=== PATIENT | male | born 1995 | race African-American/Black ===

== ENCOUNTER 2025-06-28 20:57 | Emergency (ER) | payer BC, SELFPAY ==
[2025-06-28 21:06] VITALS: BP 123/69; PULSE 101; RESP 20; TEMP 37.2; O2SAT 95; BMI 25.7
--- OUTSIDE RECORDS SUMMARY | 2025-06-28 21:39 | XMS_ITS | Encounter Summary ---
Author Organization [facility] Address [address] [place] [address] Care Team Providers Care Casino Duty Manager Name Role Phone No Primary/Referring, Phy Primary Care Provider Unavailable Encounter Details Date Type Department Care Team (Late st Contact Info) Description 06/14/2019 Correspondence None No Primary/Referring, Phy [facility] Social History Tobacco Use Types Packs/Day Years Used Date Smoking Tobacco: Never Smokeless Tobacco: Never Alcohol Use Standard Drinks/Week Comments Not Currently 0 (1 standard drink = 0.6 oz pur e alcohol) Sex and Gender Information Value Date Recorded Sex Assigned at Not on file Legal Sex Male 4:35 PM CDT Gender Identity Not on file Sexual Orientation Not on file documented as of this encounter Plan of Treatment Not on file documented as of this encounter Visit Diagnoses Not on filedocumented in this encounter Care Teams Casino Duty Manager Relationship Specialty Start Date End Date No Primary/Referring, Phy PCP - General 10/25/19 documented as of this encounter
--- OUTSIDE RECORDS SUMMARY | 2025-06-28 21:39 | XMS_ITS | Encounter Summary ---
Author Organization [facility] Address [address] [place] [address] Care Team Providers Care Medicaid Analyst Name Role Phone No Primary/Referring, Phy Primary Care Provider Unavailable Encounter Details Date Type Department Care Team (Late st Contact Info) Description 06/14/2019 Consent for Procedure/Treatme nt Travel and Tropical Medicine [address] [facility] [place], [place] [id number] Manisha Montenegro PA-C [address] [place], [place] [phone] INFORMED CONSENT VACCINATION Social History Tobacco Use Types Packs/Day Years [...] on filedocumented in this encounter Care Teams Medicaid Analyst Relationship Specialty Start Date End Date No Primary/Referring, Michele PCP - General 10/25/19 documented as of this encounter
--- OUTSIDE RECORDS SUMMARY | 2025-06-28 21:39 | XMS_ITS | Clinical Summary ---
Author Organization [facility] Address [address], [place] [address] Care Team Providers Care Color Printer Operator Name Role Phone No Primary/Referring, Phy Primary Care Provider Unavailable Source Comments You are receiving this document as you are listed as the primary care provider,follow-up provider, or the patient has been referred to you for consultation.This is in compliance with the Medicare and[facility] E[facility] Incentive Program,which states Providers who transition their patient to another setting of careor provider of care or refers their patient to another provider of care shouldprovide summary care record for each transition of care or referral. Code Fever Allergies No known active allergies Medications olopatadine (PATADAY) 0.2 % eye drop solution Place 1 Drop into both eyes daily. 2.5 mL 1 03/23/2023 Active Immunizations Immunization Administration Dates Next Due Fluzone Qiv Multidose Vial 0.25 (6-35 Mos) 09/03 HepA Adult (19+ yrs) 06/14/2019,2014 HepB Adult (Engerix-B, 20+ yrs, 3 dose series) 0 06/14/2019 HepB Ped/Adol (0-18 yrs) 02/02/2016,09/03/2015 IPV (Polio) 09/03/2015 MMR 06/14/2019,02/02/2016 Meningococcal ACWY, Unspecified Formulation 08/24 Tdap 09/03/2015,2014 Typhoid (Typhim Vi, IM) 06/14/2019 Varicella 02/02/2016 YF (Yellow Fever) 06/14/2019 Social History Tobacco Use Types Packs/Day Years Used Date Smoking Tobacco: Never Smokeless Tobacco: Never Alcohol Use Standard Drinks/Week Comments Not Currently 0 (1 standard drink = 0.6 oz pur e alcohol) Sex and Gender Information Value Date Recorded Sex Assigned at Not on file Legal Sex Male 4:35 PM CDT Gender Identity Not on file Sexual Orientation Not on file Last Filed Vital Signs Vital Sign Reading Time Taken Comments Blood Pressure 133/76 03/23/2023 7:13 PM CDT Pulse 91 03/23/2023 7:13 PM CDT Temperature 36.9 C (98.4 F) 03/23/2023 7:13 PM CDT Respiratory Rate 20 03/23/2023 7:13 PM CDT Oxygen Saturation 98% 03/23/2023 7:13 PM CDT Inhaled Oxygen Concentration - - Weight 81.6 kg (180 lb) 10/25/2019 1:07 PM DOLL WIGS HACKLER Height 170.2 cm (5' 7) 06/14/2019 1:32 PM CDT Body Mass Index 28.19 06/14/2019 1:32 PM CDT Plan of Treatment Health Maintenance Due Date Last Done Comments Hep C Screening (Preventive Services) 1994 Tuberculosis Screening 1994 Hep B Screening ([facility]) 1995 HIV Screening (Preventive Services) 2010 Adult Preventive Visit 2012 HepB Vaccine (2) 07/12/2019 06/14/2019, 02/02/2016, 09/03/2015 HPV Vaccine (1 - 3-dose SCDM series) 2021 COVID-19 Vaccine (4 - 2023-2 5 season) 2024 11/07/2021, 05/11/2021, 04/13/2021 Influenza Vaccine (#1) 2025 2, 09/03/2015 DTaP/Tdap/Td Vaccine (3 - Tdap) 09/03/2025 09/03/2015, 2014 Zoster/Shingles Vaccine (1 o f 2) 2044 IPV (Polio) Vaccine Aged Out 09/03/2015 No longe r eligible based on patient's age to complete this topic MCV4 Vaccine Aged Out 09/03/2015 No longer eligi ble based on patient's age to complete this topic HepA Vaccine Completed 06/14/2019, 2014 Hib Vaccine Aged Out No longer eligi ble based on patient's age to complete this topic Meningococcal B Vaccine Aged Out No l onger eligible based on patient's age to complete this topic Pneumococcal Vaccine Aged Out No long er eligible based on patient's age to complete this topic Insurance [facility] [employer] Care Teams Color Printer Operator Relationship Specialty Start Date End Date No Primary/Referring, Phy PCP - General 10/25/19
--- OUTSIDE RECORDS SUMMARY | 2025-06-28 21:39 | XMS_ITS | Clinical Summary ---
Author Organization [employer] [facility] Address [facility] [place] [address] Care Team Providers Care Roller Bearing Inspector Name Role Phone Pcp, No Primary Care Provider Unavailabl e Allergies No known active allergies Medications albuterol HFA 90 mcg/actuation inhalerIndicatio ns:Wheezing,Low O2 saturation,Lower respiratory infection (e.g., bronchitis, pneumonia, pneumonitis, pulmonitis) Inhale 1-2 Puffs by mouth every 4 hours if needed for Shortness Of Breath or Wheezing. 1 Each 5 Active Active Problems No known active problems Immunizations Immunization Administration Dates Next Due Hepatitis A (Adult) 06/14/2019,2014 Hepatitis A, Unspecified 2014 Hepatitis B (Adult) 06/14/2019 Hepatitis B (Peds) 02/02/2016,09/03/2015 Hepatitis B, Unspecified 02/02/2016,09/03/2015 Inactivated Polio Vaccine 09/03/2015 Influenza, IIV4 (=>6mos) MDV 09/03/2015 Influenza,CCIIV4 PRESERV FREE 11/07/2021 MMR 06/14/2019,02/02/2016 Meningococcal Vaccine (Menomune) 09/03/2015 Meningococcal, Unspecified 09/03/2015 Tdap 09/03/2015,2014 Typhoid (injectable) 06/14/2019 Varicella Vaccine 02/02/2016 Yellow Fever 06/14/2019 Social History Tobacco Use Types Packs/Day Years Used Date Smoking Tobacco: Never Passive Smoke Exposure: Never Smokeless Tobacco: Never Tobacco Cessation:Counseling Given: Not Answered Alcohol Use Standard Drinks/Week Comments Not Currently 0 (1 standard drink = 0.6 oz pur e alcohol) PHQ-2 Answer Date Recorded PHQ-2 TOTAL SCORE 0 03/02/2024 Social Connections Answer Date Recorded Do you often feel lonely or isolated from those around you? 0 03/09/2025 Financial Resource Strain Answer Date R ecorded Difficulty of Paying Living Expenses 3 02/28/2025 Difficulty of Paying Living Expenses Not on file 02/28/2025 Food Insecurity Answer Date Recorded Do you worry your food will run out before you are able to buy more? 1 03/09/2025 Transportation Needs Answer Date Record ed Does lack of transportation keep you from medica l appointments? 1 03/09/2025 Does lack of transportation keep you from work, meetings or getting things that you need? 1 03/09/2025 Housing Stability Answer Date Recorded What is your housing situation today? 1 03/09/2025 Utilities Answer Date Recorded Do you have trouble paying f or utilities (for example, heat, electricity, water, phone)? 1 03/09/2025 Sex and Gender Information Value Date Recorded Sex Assigned at Not on file Legal Sex Male 5:52 PM ACCOUNT FINANCIAL MANAGER Gender Identity Not on file Sexual Orientation Not on file Obstetrics History Last Filed Vital Signs Vital Sign Reading Time Taken Comments Blood Pressure 130/67 03/09/2025 7:17 PM CDT Pulse 91 03/09/2025 7:17 PM CDT Temperature 36.6 C (97.8 F) 03/09/2025 7:17 PM CDT Respiratory Rate 18 03/09/2025 7:17 PM CDT Oxygen Saturation 94% 03/09/2025 8:54 PM CDT Inhaled Oxygen Concentration - - Weight 92.1 kg (203 lb) 03/09/2025 7:17 PM CDT Height 174 cm (5' 8.5) 03/02/2024 11:38 AM CDT Body Mass Index 30.42 03/02/2024 11:38 AM CDT Plan of Treatment Health Maintenance Due Date Last Done Comments BMI (ht and wt on same day) for age 18+ 03/02/2025 03/02/2024 Depression screening for age 12+ 03/02/2025 03/02/2024 COVID-19 vaccine series ( season) 2025 11/07/2021, 05/11/2021, 04/13/2021 Influenza Vaccine (#1) 2025 11/07/2021, 2014 Tetanus booster 09/03/2025 09/03/2015, 2014 RSV vaccine for adults or (1 - 1-dose 75+ series) 2069 Hepatitis B series for 19+ Completed 06/14, 02/02/2016, 02/02/2016, Additional history exists HIV for age 15-65 Completed 03/02/2024 Hepatitis C screening for age 18-79 Completed 03/02/2024 Pneumococcal series for age 6-49 Aged Out No longer eligible based on patient's age to complete this topic Procedures Procedure Name Priority Date/Time Associated Diagnosis Comments ANTI HIV 1/2 Routine 03/02/2024 12:21 PM CDT Screening for HIV (human immunodeficiency virus) ANTI HCV Routine 03/02/2024 12:21 PM CDT Need for hepatitis C screening test from Last 3 Months or Most Recently Relevant to Health Maintenance Results * ANTI HCV (03/02/2024 12:21 PM CDT) HEPATITIS C ANTIBODY Non-Reacti ve Non-React nestor 03/03/2024 12:34 AM CDT [employer] Target Software [facility] Comment:Please note, per www .CDC.gov: If a patient is known to be at high risk of HCV infection, or is symptomatic, and the physician's suspicion of HCV infection is high, HCV RNA testing is often employed and is of diagnostic value, even after an initial negative anti-HCV test result. Blood BLOOD SPECIMEN / Unknown Venipuncture / Unknown 03/02/2024 12:21 PM CDT 03/02/2024 12:21 PM CDT us Tia PEREZ SEND OUTS Final Result [facility] [address] [place] [address], [place] * ANTI HIV 1/2 (03/02/2024 12:21 PM CDT) HIV-1/HIV-2 SCREEN Non-Reacti ve Non-Reacti ve 03/03/2024 12:15 AM CDT [facility] Comment:HIV-1 p24 and HIV-1/ HIV-2 Ab Not Detected. Blood BLOOD SPECIMEN / Unknown Venipuncture / Unknown 03/02/2024 12:21 PM CDT 03/02/2024 12:21 PM CDT us Tia PEREZ SEND OUTS Final Result [facility] [address] [place] [address], from Last 3 Months or Most Recently Relevant to Health Maintenance Insurance [facility] Care Teams Roller Bearing Inspector Relationship Specialty Start Date End Date Pcp, No . PCP - General 02/16/24
--- OUTSIDE RECORDS SUMMARY | 2025-06-28 21:39 | XMS_ITS | Clinical Summary ---
Author Organization [facility] Address [address] [place] [address] Care Team Providers Care Assistant Dean Name Role Phone No Ref-Primary, Physician Primary Care Provider Allergies No known active allergies Medications diclofenac (VOLTAREN) 75 MG EC tabletIndicatio ns:Acute right-sided thoracic back pain Take 1 tablet (75 mg) by mouth 2 times daily as needed for moderate pain 15 tablet 4 Active Additional Information Patient not taking.Reported on 12/26/2024 cyclobenzaprine (FLEXERIL) 5 MG tabletIndicatio ns:Acute right-sided thoracic back pain Take 1 tablet (5 mg) by mouth 3 times daily as needed for muscle spasms 15 tablet 4 Active Additional Information Patient not taking.Reported on 12/26/2024 Active Problems Problem Noted Date Diagnosed Date CARDIOVASCULAR SCREENING; LDL GOAL LESS THAN 160 2014 Immunizations Immunization Administration Dates Next Due HEPA 2014 HepB 02/02/2016,09/03/2015 Hepatitis A (VAQTA)(ADULT 19+) 06/14/2019 Hepatitis B, Adult (Energix-B/Recombivax HB) Hepatitis B, Peds (Engerix-B/Recombivax HB) 01/22,09/03/2015 Influenza Vaccine, 6+MO IM ( QUADRIVALENT W/PRESERVATIVES) 09/03/2015 Influenza,INJ,MDCK,PF,Quad >6mo(Flucelvax) 11/07 MMR (MMRII) 06/14/2019,02/02/2016 Meningococcal (Menomune ) 09/03/2015 Poliovirus, inactivated (IPV) 09/03/2015 TDAP Vaccine (Adacel) 09/03/2015,2014 Typhoid IM 06/14/2019 Varicella (Varivax) 02/02/2016 Yellow Fever 06/14/2019 Family History Medical History Relation Comments Family History Negative Brother 1 Family History Negative Brother 2 Family History Negative Father Family History Negative Maternal Grandfather Family History Negative Maternal Grandmother Family History Negative Mother Family History Negative Paternal Grandfather Family History Negative Paternal Grandmother Relation Status Comments Brother 1 Brother 2 Father Maternal Grandfather Maternal Grandmother Mother Paternal Grandfather Paternal Grandmother Social History Tobacco Use Types Packs/Day Years Used Date Smoking Tobacco: Never Smokeless Tobacco: Never Alcohol Use Standard Drinks/Week Comments No 0 (1 standard drink = 0.6 oz pur e alcohol) PHQ-2 Answer Date Recorded PHQ-2 Score 0 12/26/2024 Adolescent Education Answer Date Record ed Getting School Help Needed Not on file 07/15 Food Insecurity Answer Date Recorded Within the past 12 months, d id you worry that your food would run out before you got money to buy more? No 12/26/2024 Within the past 12 months, d id the food you bought just not last and you didn t have money to get more? No 12/26/2024 Housing Stability Answer Date Recorded Do you have housing? (Laurain g is defined as stable permanent housing and does not include staying outside in a car, in a tent, in an abandoned building, in an overnight usp, or couch-surfing.) Yes 12/26/2024 Are you worried about losing your housing? No 12/26/2024 Financial Resource Strain Answer Date R ecorded Within the past 12 months, h ave you or your family members you live with been unable to get utilities (heat, electricity) when it was really needed? No 12/26/2024 Transportation Needs Answer Date Record ed Within the past 12 months, h as lack of transportation kept you from medical appointments, getting your medicines, non-medical meetings or appointments, work, or from getting things that you need? No 12/26/2024 Sex and Gender Information Value Date Recorded Sex Assigned at Male 12/26/2024 2:03 PM STRAIGHT KNIFE CUTTER MACHINE Legal Sex Male 9:17 AM STRAIGHT KNIFE CUTTER MACHINE Gender Identity Male 12/26/2024 2:02 PM STRAIGHT KNIFE CUTTER MACHINE Sexual Orientation Straight 12/26/2024 2: 02 PM STRAIGHT KNIFE CUTTER MACHINE Last Filed Vital Signs Vital Sign Reading Time Taken Comments Blood Pressure 120/78 03/21/2024 7:03 PM CDT Pulse 63 03/21/2024 7:03 PM CDT Temperature 36.6 C (97.9 F) 03/21/2024 7:03 PM CDT Respiratory Rate 16 07/17/2021 10:21 AM CDT Oxygen Saturation 97% 03/21/2024 7:03 PM CDT Inhaled Oxygen Concentration - - Weight 94.5 kg (208 lb 4.8 oz) 03/21/2024 7:03 P M CDT Height 172.1 cm (5' 7.75) 05/25/2019 4:25 PM CD T Body Mass Index 31.91 05/25/2019 4:25 PM CDT Plan of Treatment Health Maintenance Due Date Last Done Comments ADVANCE CARE PLANNING 1994 ANNUAL REVIEW OF HM ORDERS 1994 YEARLY PREVENTIVE VISIT 03/02/2025 03/02/2024, 12/16 COVID-19 VACCINE ( season) 2025 11/07/2021, 05/11/2021, 04/13/2021 INFLUENZA VACCINE (#1) 2025 11/07/2021, 2014 DTAP/TDAP/TD VACCINE (3 - Td or Tdap) 09/03/2025 09/03/2015, 2014 ZOSTER VACCINE (1 of 2) 2044 MENINGITIS VACCINE Aged Out 09/03/2015 No longer eligible based on patient's age to complete this topic HEPATITIS B VACCINE Completed 06/14/2019, 02/02/2016, 02/02/2016, Additional history exists HEPATITIS C SCREENING Completed 03/02/2024, 015 HIV SCREENING Completed 03/02/2024 PHQ-2 (once per calendar year) Completed 12/26/2024, 05/10/2019, 11/07/2015 HPV VACCINE (No Doses Required) Completed PNEUMOCOCCAL VACCINE: PEDIATRICS (0 to 5 YEARS) AND AT-RISK PATIENTS (6 to 49 YEARS) Aged Out No longer eligible based on patient's age to complete this topic Procedures Procedure Name Priority Date/Time Associated Diagnosis Comments HEPATITIS C ANTIBODY Routine 2014 11:54 AM STRAIGHT KNIFE CUTTER MACHINE Routine General Medical Examination At A Health Care Facility from Last 3 Months or Most Recently Relevant to Health Maintenance Results * Hepatitis C antibody (2014 11:54 AM STRAIGHT KNIFE CUTTER MACHINE) Hepatitis C Antibody Nonreactive Assay performance characteristics have not been established for newborns, infants, and children NR [facility] Blood specimen (specimen) 2014 11:54 AM STRAIGHT KNIFE CUTTER MACHINE 2014 11:55 AM STRAIGHT KNIFE CUTTER MACHINE us Arely Tsai APRN [facility] - BLOOD ORDERABLES Final Result [facility] [address] [place] [address] from Last 3 Months or Most Recently Relevant to Health Maintenance Care Teams Assistant Dean Relationship Specialty Start Date End Date No Ref-Primary, Physician PCP - General 03/21/24
[2025-06-28 21:54] LABS: Strep A DNA Probe* DETECTED (Not Detectd)
--- NOTE | 2025-06-28 22:05 | ED_ITS ---
HPI - General Adult General Date Seen: 06/28/25 Chief complaint: Ear/Nose/Throat Problem Stated complaint: sore throat and fever Time Seen by Provider: 06/28/25 20:58 Source: patient Mode of arrival: ambulatory Limitations: no limitations History of Present Illness HPI narrative: Patient is a 29-year-old male presenting to the emergency department for a sore throat. He states sore throat started today. Has also been feeling fatigued all day. Has not had any fevers or chills. Has not had a cough. Does admit to headache. Took ibuprofen at 17:00 with some relief. Does state his son is on medication currently for strep throat. He was diagnosed 1 week ago. No other people are sick that he is aware of. Has not noticed any swelling underneath his tongue. No difficulty breathing. Denies chest pain, weakness, numbness, diarrhea, constipation. No other concerns noted Related Data Home Medications ?Medication ?Instructions ?Recorded ?Confirmed ibuprofen 200 mg tablet (Advil) 400 mg PO Q6-8H PRN 06/28/25 Previous Rx's ?Medication ?Instructions ?Recorded amoxicillin 875 mg tablet 875 mg PO Q12H 10 days #20 t abs 06/28/25 Allergies Allergy/AdvReac Type Severity Reaction Status Date / Time No Known Drug Allergies Allergy Verified 06/28/25 21:12 Review of Systems Status of ROS: Reports: 10 or more systems reviewed and unremarkable except as noted in History and below [facility] Medical History Patient denies medical problems ?Z78.9 - Other specified health status (ICD-10) Social History Smoking Status: Never smoker Do you use any of these nicotine containing products: None Second hand tobacco smoke exposure: No How often do you have a drink containing alcohol: never AUDIT-C Alcohol total score: 0 Non-prescribed substance use: denies use service: No Exam Narrative: Exam Narrative: Const: Well-nourished, Well-developed, in mild distress Eyes: PERRL, no conjunctival injection, and symmetrical lids HENT: Atraumatic external nose and ears. Moist mucous membranes. Bilateral tonsils swelling, uvula midline, no tonsillar exudates. No swelling noted underneath the tongue Neck: Symmetric, trachea midline, No thyromegaly. MSK:Extremities w/o deformity, Normal Active ROM Skin: Warm, Dry. No rashes or lesions. Neuro: Normal Muscle tone, No focal neurological deficits. Psych: Awake, Alert, & Oriented x3. Appropriate mood and affect. Const: Vital Signs, click to edit/add: Vital Signs - 24 hr 06/28/25 21:06 Temperature 98.9 F Pulse Rate [Left P ulse Oximeter] 101 H Respiratory Rate 20 Blood Pressure [Le ft Upper Arm] 123/69 Pulse Oximetry 95 Oxygen Delivery Me thod Room Air Course Vital Signs Vital signs: Initial Vital Signs Temperature 98.9 F 06/28/25 21:06 Temperature Source Temporal Artery Scan 06/28/25 21:06 Pulse Rate 101 H 06/28/25 21:06 Respiratory Rate 20 06/28/25 21:06 Blood Pressure 123/69 06/28/25 21:06 Blood Pressure Mean 87 06/28/25 21:06 Blood Pressure Position Sitting 06/28/25 21:06 Pulse Oximetry 95 06/28/25 21:06 Oxygen Delivery Method Room Air 06/28/25 21:06 Vital Signs Temperature 98.9 F 06/28/25 21:06 Pulse Rate 101 H 06/28/25 21:06 Respiratory Rate 20 06/28/25 21:06 Blood Pressure 123/69 06/28/25 21:06 Pulse Oximetry 95 06/28/25 21:06 Oxygen Delivery Method Room Air 06/28/25 21:06 Temperature 98.9 F 06/28/25 21:06 Pulse Rate 101 H 06/28/25 21:06 Respiratory Rate 20 06/28/25 21:06 Blood Pressure 123/69 06/28/25 21:06 Pulse Oximetry 95 06/28/25 21:06 Oxygen Delivery Method Room Air 06/28/25 21:06 Medications Administered Medications: Discontinued Medications Generic Name Dose Route Start Last Admin Trade Name Freq PRN Reason Stop Dose Admin Amoxicillin 500 mg 06/28/25 22:09 06/28/25 22:22 Amoxicillin 250 Mg Capsule PO 06/28/25 22:10 500 mg ONCE ONE Administration Medical Decision Making MDM Narrative Medical decision making narrative: Patient is a 29-year-old male presenting for sore throat. Patient is not showing signs of peritonsillar abscess, Lizandro angina, retropharyngeal abscess,Lemierre disease or any other concerning oral pharynx or deep neck space abscesses. Imaging is not necessary. Strep swab along with viral swabs were ordered. Strep swab is positive. Lab Data Labs: Lab Results 06/28/25 Range/Units 21:17 SARS-CoV-2 (PCR) Negative SARS-CoV-2 (Negative) Influenza Type A (PCR) Negative PCR FLU A (Negative) Influenza Type B (PCR) Negative PCR FLU B (Negative) RSV (PCR) Negative PCR RSV (Negative) Group A Strep DNA DETECTED A (Not Detectd) Discharge Plan Discharge Clinical Impression: Acute streptococcal pharyngitis Patient Disposition: Home, Self-Care Condition: Stable Instructions: Strep Throat (DC) Additional Instructions: Take Tylenol and ibuprofen for your pain. Return to emergency department for new or worsening symptoms. Take the antibiotic as prescribed. Prescriptions: New amoxicillin 875 mg tablet 875 mg PO Q12H 10 Days Qty: 20 0RF No Action ibuprofen [Advil] 200 mg tablet 400 mg PO Q6-8H PRN Follow Up/Referrals: Provider,Not a Local [Primary Care Provider, Family Practice] Stand Alone Forms: [employer] Info Instructions
[2025-06-28 22:10] LABS: PCR FLU A Negative PCR FLU A (Negative); PCR FLU B Negative PCR FLU B (Negative); PCR RSV Negative PCR RSV (Negative); SARS PCR* Negative SARS-CoV-2 (Negative)
[2025-06-28] MEDS: AMOXICILLIN 250 MG CAPSULE 500 MG PO (22:22)
== END 2025-06-28 22:29 | disposition home or self-care (01) ==
PROVIDERS: Emergency Provider Student in an Organized Health Care Education/Training Program
DX: J02.0 Streptococcal pharyngitis (principal)
CPT/HCPCS: 87631; 87651; 99283; A9270